=== PATIENT | female | born 1985 | race Caucasian/White ===

== ENCOUNTER 2019-06-16 19:48 | Emergency (ER) | payer SELFPAY ==
[~2019-06-16] VITALS: Ht 170.2 cm; Wt 82.0 kg
[2019-06-16 20:02] VITALS: BP 206/125
[2019-06-16] MEDS ORDERED: MORPHINE SULFATE 10 MG/ML SYRINGE. SQ ONE (20:15)
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
[2019-06-16] MEDS ORDERED: ORPHENADRINE CITRATE 60 MG/2 ML VIAL. IM ONE (20:30)
--- NOTE | 2019-06-16 20:57 | RAD ---
Study: 1. CR CHEST AP ONLY 2. CR SHOULDER 2+V LEFT Indication: Shoulder injury. Comparison: None. Findings: Chest: Unremarkable cardiomediastinal silhouette and tato. No pneumothorax, lobar infiltrate or pleural effusion. Grossly intact osseous structures. Left shoulder: Normal glenohumeral and acromioclavicular joint alignment. No acute fracture. Impression: Chest: 1. No acute radiographic abnormality of the chest. Left shoulder: 1. No acute fracture or malalignment. Electronically signed by: SANJANA MARIN MD (06/16/2019 8:54 PM) [id number]
[2019-06-16] MEDS ORDERED: HYDR-1179 PO (21:17)
[2019-06-16] MEDS ORDERED: CYCL-331 PO (21:17)
== END 2019-06-16 21:25 | disposition home or self-care (01) ==
LOC: ER 19:48
DX: S43.402A Unspecified sprain of left shoulder joint, initial encounter (principal); Z88.1 Allergy status to other antibiotic agents; W20.8XXA Other cause of strike by thrown, projected or falling object, initial encounter; Y93.89 Activity, other specified; Y92.89 Other specified places as the place of occurrence of the external cause; Y99.8 Other external cause status
CPT/HCPCS: 71045; 73030; 96372; 99284; J2270; J2360